=== PATIENT | male | born 1965 | race African-American/Black ===

== ENCOUNTER 2016-10-21 18:12 | Emergency (ER) | payer OTHER ==
[~2016-10-21] VITALS: Ht 188 cm; Wt 113.4 kg
[2016-10-21 19:27] LABS: Basophils # (auto) 0 uL; Basophils % (auto) 0.4 % (0.0-2.0); Eosinophils # (auto) 0.1 uL; Eosinophils % (auto) 1.6 % (0.0-7.0); Hematocrit 42.4 % (41.0-53.0); Hemoglobin 13.8 g/dL (13.5-17.5); Lymphocytes # (auto) 2.2 uL; Lymphocytes % (auto) 38.1 % (10.0-50.0); Mean Corpuscular Hemoglobin 27.7 pg (28.0-32.0); Mean Corpuscular Hgb Conc. 32.5 g/dL (32.0-36.0); Mean Corpuscular Volume 85.4 fL (80.0-100.0); Mean Platelet Volume 7.8 fL (7.4-10.4); Monocytes # (auto) 0.4 uL; Monocytes % (auto) 7.6 % (0.0-12.0); Neutrophils % (auto) 52.3 % (37.0-80.0); Platelet Count (auto) 298 10^3/uL (140-450); Red Cell Distribution Width 13.3 % (11.6-16.0); White Blood Cell 5.8 10^3/uL (4.4-10.8)
[2016-10-21 20:12] LABS: Albumin 3.5 g/dL (3.4-5.0); BUN/Creatinine Ratio 12.8; Calcium 8.6 mg/dL (8.5-10.1); Magnesium 2.3 mg/dL (1.6-2.6); Potassium 4.2 mmol/L (3.5-5.1)
[2016-10-21 20:28] LABS: Bilirubin, Total 0.7 mg/dL (0.2-1.0); Total Protein 7.4 g/dL (6.4-8.2)
[2016-10-22] MEDS ORDERED: SODIUM CHLORIDE 0.9% 1,000 ML IV ONE (01:30)
[2016-10-22 01:58] VITALS: BP 138/43
== END 2016-10-22 02:37 | disposition short-term general hospital (02) ==
LOC: EDBD 18:20 → ER 18:20
DX: R07.9 Chest pain, unspecified (principal); M62.82 Rhabdomyolysis; M19.90 Unspecified osteoarthritis, unspecified site; R51 Headache; E11.9 Type 2 diabetes mellitus without complications; I10 Essential (primary) hypertension; I25.2 Old myocardial infarction; F17.210 Nicotine dependence, cigarettes, uncomplicated
CPT/HCPCS: 36415; 70450; 71010; 72125; 73120; 80053; 82550; 82553; 82962; 83735; 84484; 85025; 85379; 93005; 96360; 99285; J7030

== ENCOUNTER 2017-12-06 02:55 | Emergency (ER) | payer OTHER ==
[~2017-12-06] VITALS: Ht 190.5 cm; Wt 116.1 kg
[2017-12-06 03:04] VITALS: BP 152/100
[2017-12-06] MEDS ORDERED: KETOROLAC TROMETH 60MG/2ML VIAL IM ONE (06:45)
[2017-12-06] MEDS ORDERED: HYDROcodone-ACET 10/325MG TAB PO ONE (06:45)
== END 2017-12-06 07:31 | disposition home or self-care (01) ==
LOC: ER 02:56
DX: S42.151A Displaced fracture of neck of scapula, right shoulder, initial encounter for closed fracture (principal); M79.641 Pain in right hand; E11.9 Type 2 diabetes mellitus without complications; I10 Essential (primary) hypertension; I25.2 Old myocardial infarction; R51 Headache; Y08.89XA Assault by other specified means, initial encounter; Y93.89 Activity, other specified; Y99.8 Other external cause status; Y92.89 Other specified places as the place of occurrence of the external cause
CPT/HCPCS: 73030; 73130; 96372; 99284; J1885

== ENCOUNTER 2019-04-07 01:07 | Emergency (ER) | payer SELFPAY ==
[~2019-04-07] VITALS: Ht 193 cm; Wt 116.6 kg
[2019-04-07] MEDS ORDERED: HYDROcodone-ACET 10/325MG TAB PO ONE (01:30)
[2019-04-07 02:04] LABS: Basophils # (auto) 0.1 uL; Basophils % (auto) 0.8 % (0.0-2.0); Eosinophils # (auto) 0.2 uL; Eosinophils % (auto) 2.3 % (0.0-7.0); Hematocrit 42.4 % (41.0-53.0); Hemoglobin 14.4 g/dL (13.5-17.5); Lymphocytes # (auto) 2.3 uL; Lymphocytes % (auto) 30.8 % (10.0-50.0); Mean Corpuscular Hemoglobin 29.2 pg (28.0-32.0); Mean Corpuscular Hgb Conc. 33.9 g/dL (32.0-36.0); Monocytes # (auto) 0.7 uL; Monocytes % (auto) 9.2 % (0.0-12.0); Neutrophils # (auto) 4.3 uL; Neutrophils % (auto) 56.9 % (37.0-80.0); Nucleated Red Blood Cells % 0.1 %; Platelet Count (auto) 227 10^3/uL (140-450); Red Blood Cells 4.92 10^6/uL (4.5-5.90); Red Cell Distribution Width 13.8 % (11.8-14.3); White Blood Cell 7.6 10^3/uL (4.4-10.8)
[2019-04-07 02:20] LABS: Albumin 3.5 g/dL (3.4-5.0); BUN/Creatinine Ratio 11.2; Calcium 7.8 mg/dL (8.5-10.1)
[2019-04-07 02:22] LABS: Bilirubin, Total 0.9 mg/dL (0.2-1.0); Total Protein 7.4 g/dL (6.4-8.2)
[2019-04-07] MEDS ORDERED: cloNIDine HCL 0.1 MG TAB PO ONE (04:00)
[2019-04-07] MEDS ORDERED: INDOMETHACIN 25 MG CAP PO ONE (07:30)
[2019-04-07 07:44] VITALS: BP 106/54
== END 2019-04-07 08:18 | disposition home or self-care (01) ==
LOC: ER 01:12
DX: M10.071 Idiopathic gout, right ankle and foot (principal); E11.9 Type 2 diabetes mellitus without complications; I10 Essential (primary) hypertension; I25.2 Old myocardial infarction; F17.290 Nicotine dependence, other tobacco product, uncomplicated; Z98.61 Coronary angioplasty status
CPT/HCPCS: 36415; 73630; 80053; 84550; 85025

== ENCOUNTER 2020-04-23 08:55 | Emergency (ER) | payer SELFPAY ==
[~2020-04-23] VITALS: Ht 193 cm; Wt 82.6 kg
[2020-04-23 09:52] VITALS: BP 191/105
[2020-04-23] MEDS ORDERED: ACETAMINOPHEN/CODEINE#3 (300/30mg) TAB PO ONE (10:00)
== END 2020-04-23 11:06 | disposition home or self-care (01) ==
LOC: ER 08:55
DX: M25.561 Pain in right knee (principal); E11.9 Type 2 diabetes mellitus without complications; I10 Essential (primary) hypertension
CPT/HCPCS: 73562

== ENCOUNTER 2020-09-13 21:53 | Emergency (ER) | payer SELFPAY ==
[~2020-09-13] VITALS: Ht 193 cm; Wt 108.9 kg
[2020-09-13 21:53] VITALS: BP 176/125
[2020-09-13] MEDS ORDERED: cloNIDine HCL 0.1 MG TAB ONE (21:57)
[2020-09-13] MEDS ORDERED: cloNIDine HCL 0.1 MG TAB PO ONE (22:00)
[2020-09-13 23:10] LABS: Albumin 3.5 g/dL (3.4-5.0); Anion Gap 6 (5-15); Blood Urea Nitrogen 18 mg/dL (7-18); Calcium 8.7 mg/dL (8.5-10.1); Carbon Dioxide 24 mmol/L (21-32); Chloride 107 mmol/L (98-107); Glucose 106 mg/dL (74-106); Potassium 4.2 mmol/L (3.5-5.1); Sodium 137 mmol/L (136-145)
[2020-09-13 23:12] LABS: INR 1.05 (0.9-1.15); Partial Thromboplastin Time 26.2 sec (23.0-31.2)
[2020-09-13 23:15] LABS: Alanine Aminotransferase 19 U/L (16-61); Alkaline Phosphatase 100 U/L (45-117); Aspartate Aminotransferase 16 U/L (15-37); BUN/Creatinine Ratio 11.7; GFR African American 61 mL/min; GFR Non-African American 50 mL/min; Total Protein 8.6 g/dL (6.4-8.2)
[2020-09-13 23:37] LABS: Basophils # (auto) 0 10 ^3/uL (0-0.2); Basophils % (auto) 0.4 % (0.0-2.0); Eosinophils # (auto) 0 10 ^3/uL (0-0.8); Eosinophils % (auto) 0.3 % (0.0-7.0); Hematocrit 43.5 % (41.0-53.0); Hemoglobin 14.8 g/dL (13.5-17.5); Lymphocytes # (auto) 1.7 10 ^3/uL (0.4-5.4); Lymphocytes % (auto) 16.5 % (10.0-50.0); Mean Corpuscular Hemoglobin 29.4 pg (28.0-32.0); Mean Corpuscular Hgb Conc. 34.1 g/dL (32.0-36.0); Mean Corpuscular Volume 86.4 fL (80.0-100.0); Monocytes # (auto) 0.8 10 ^3/uL (0-1.3); Monocytes % (auto) 7.8 % (0.0-12.0); Neutrophils # (auto) 7.7 10 ^3/uL (1.6-8.6); Nucleated Red Blood Cells % 0.1 %; Platelet Count (auto) 307 10^3/uL (140-450); Red Blood Cells 5.03 10^6/uL (4.5-5.90); Red Cell Distribution Width 12.7 % (11.8-14.3); White Blood Cell 10.3 10^3/uL (4.4-10.8)
== END 2020-09-14 06:03 | disposition home or self-care (01) ==
LOC: ER 21:54
DX: R07.89 Other chest pain (principal); R06.02 Shortness of breath; R00.0 Tachycardia, unspecified; E11.9 Type 2 diabetes mellitus without complications; I10 Essential (primary) hypertension
CPT/HCPCS: 36415; 70450; 71045; 80053; 83880; 84484; 85025; 85610; 85730; 93005